=== PATIENT | male | born 1930 | race Caucasian/White ===

== ENCOUNTER 2018-07-09 15:03 | Observation (INO) | payer MEDICARE ==
[2018-07-09 15:26] LABS: VBG BASE EXCESS 8.5 (-2.0-2.0); VBG HCO3- 36.7 meq/L (22-28); VBG HEMOGLOBIN 14.8; VBG POTASSIUM 4.1 (3.5-5.1); VBG pH 7.36 (7.32-7.42)
[2018-07-09 15:30] LABS: BASOPHIL % 0.2 % (0.0-0.4); Basophil (Absolute #) 0.02 (0-0.4); Eosinophil % 0.4 % (0.00-5.0); Eosinophil (Absolute #) 0.04 (0-0.5); Granulocyte Absolute (ANC) 7.26 (1.4-6.9); Granulocytes % 78.6 % (36.0-66.0); Hematocrit 46.1 % (42-50); Hemoglobin 14.8 gm/dl (12.5-18.0); Lymphocyte (Absolute #) 1.07 (1.0-4.6); Lymphocytes % 11.6 % (24.0-44.0); Mean Cell Volume 99.1 fl (78-100); Mean Corpuscular Hemoglobin 31.8 pg (26-32); Mean Corpuscular Hgb Concent. 32.1 g/dl (32-36); Mean Platelet Volume 10.5 fl (6-9.5); Monocyte (Absolute #) 0.85 (0.0-1.3); Monocytes % 9.2 % (0.0-12.0); Platelet Count 186 K/mm3 (150-450); Red Blood Count 4.65 M/mm3 (4.1-5.6); Red Cell Distribution Width 14.1 % (11.5-14.0); White Blood Count 9.2 K/mm3 (4.0-10.5)
--- NOTE | 2018-07-09 15:31 | ERPHSYRPT ---
- History of Present Illness Time Seen by Provider: 07/09/18 15:26 Source: patient Exam Limitations: no limitations Physician History: 87-year-old white female with history of ALS, COPD, glaucoma. Brought by his family with complaints of shortness of breath. The patient states he feels like he needs to cough but he really can't. Family states that patient is supposed to be on BiPAP and that this and recommended his neurologist however this has not been able to be set up patient. Patient has not had a fever. Past medical history includes ALS, COPD, glaucoma past surgical history is negative. . Timing/Duration: today Severity: moderate Modifying Factors: Improves With: nothing Associated Symptoms: headaches, weakness (patient with ALS), No nausea, No abdominal pain, No shortness of breath, No heartburn, No diaphoresis, No cough, No chills, No chest pain, No fever, No loss of appetite, No malaise, No rash, No syncope, No seizure Allergies/Adverse Reactions: naproxen Allergy (Intermediate, Verified 07/09/18 15:30) mushrooms Allergy (Uncoded 07/09/18 16:22) Home Medications: Apixaban [Eliquis 5 mg Tablet] 5 mg PO DAILY 07/09/18 [History] Divalproex Sodium [Depakote] 500 mg PO BID 07/09/18 [History] Dorzolamide HCl/Timolol Maleat [Dorzolamide-Timolol Eye Drops] 10 ml OP DAILY [History] Finasteride 5 mg [Proscar 5 MG] 5 mg PO DAILY 07/09/18 [History] Silodosin [Rapaflo] 8 mg PO DAILY 07/09/18 [History] Travorpost Ophth [Travatan 0.004% Opth Debbie] 0 ml OP DAILY 07/09/18 [ History] Hx Tetanus, Diphtheria Vaccination/Date Given: No Hx Influenza Vaccination/Date Given: Yes Hx Pneumococcal Vaccination/Date Given: No - Review of Systems Constitutional: No Fever, No Chills Eyes: No Symptoms Ears, Nose, & Throat: No Symptoms Respiratory: Dyspnea Cardiac: No Chest Pain, No Edema, No Syncope Abdominal/Gastrointestinal: No Abdominal Pain, No Nausea, No Vomiting, No Diarrhea Genitourinary Symptoms: No Dysuria Musculoskeletal: No Back Pain, No Neck Pain Skin: No Rash Neurological: Headache, Other (Patient with ALS) Psychological: No Symptoms Endocrine: No Symptoms All Other Systems: Reviewed and Negative - Past Medical History Pertinent Past Medical History: Yes Neurological History: No Pertinent History ENT History: No Pertinent History Cardiac History: No Pertinent History Respiratory History: Emphysema, Other Endocrine Medical History: No Pertinent History Musculoskeletal History: Degenerative Disk Disease, Osteoarthritis, Osteoporosis GI Medical History: No Pertinent History History: No Pertinent History Psycho-Social History: No Pertinent History Male Reproductive Disorders: No Pertinent History Other Medical History: SOB, - Past Surgical History Past Surgical History: No Other Surgical History: TONSILLECTOMY - Social History Smoking Status: Never smoker Exposure to second hand smoke: No Alcohol Use: None Drug Use: none Patient Lives Alone: No Significant Family History: no pertinent family hx - Nursing Vital Signs Nursing Vital Signs: Initial Vital Signs Temperature 98.5 F 07/09/18 15:10 Pulse Rate 98 H 07/09/18 15:10 Respiratory Rate 24 07/09/18 15:10 Blood Pressure 158/95 07/09/18 15:10 O2 Sat by Pulse Oximetry 91 L 07/09/18 15:10 Pain Scale Pain Intensity 7 - Physical Exam General Appearance: no apparent distress, alert Eye Exam: PERRL/EOMI, eyes nml inspection Ears, Nose, Throat Exam: normal ENT inspection, TMs normal, pharynx normal, moist mucous membranes Neck Exam: normal inspection, non-tender, supple, full range of motion Respiratory Exam: diminished breath sounds Cardiovascular Exam: regular rate/rhythm, normal heart sounds, normal peripheral pulses Gastrointestinal/Abdomen Exam: soft, normal bowel sounds, No tenderness, No mass Back Exam: normal inspection, normal range of motion, No CVA tenderness, No vertebral tenderness Extremity Exam: normal inspection Neurologic Exam: alert, oriented x 3, cooperative, emr specialist II-XII nml as tested, normal mood/affect, nml cerebellar function, nml station & gait, sensation nml, No motor deficits Skin Exam: normal color, warm, dry, No rash - Course Nursing assessment & vital signs reviewed: Yes EKG Interpreted by Me: RATE (85 bp-m), Right Bundle Branch Block, Other (EKG: Sinus arrhythmia, 85 beats per minute, left axis deviation, complete right bundle branch block, left anterior fascicular block) - Radiology Exams Chest X-ray Interpretation: Interpreted by me (no acute disease process) Ordered Tests: Active Orders 24 hr Category Date Time Status Rfid Engineer STAT Care 07/09/18 15:13 Active EKG-ER Only STAT Care 07/09/18 15:12 Active IV Insertion STAT Care 07/09/18 15:12 Active Oxygen-ED Only NASAL CANNULA 2 lpm Care 07/09/18 15:12 Active CHEST 1 VIEW (PORTABLE) Stat Exams 07/09/18 15:13 Taken CBC W DIFF Stat Lab 07/09/18 15:25 Completed CMP Stat Lab 07/09/18 15:25 Completed NT PRO BNP Stat Lab 07/09/18 15:25 Completed TROPONIN Q3H Lab 07/09/18 15:25 Completed TROPONIN Q3H Lab 07/09/18 18:15 Ordered TROPONIN Q3H Lab 07/09/18 21:15 Ordered TROPONIN Q3H Lab 07/10/18 00:15 Ordered TROPONIN Q3H Lab 07/10/18 03:15 Ordered VENOUS BLOOD GAS Stat Lab 07/09/18 15:12 Completed BiPap/CPAP STAT RT 07/09/18 16:30 Active Lab/Rad Data: Laboratory Result Diagrams 07/09/18 15:25 07/09/18 15:25 Laboratory Results 07/09/18 07/09/18 07/09/18 Range/Units 15:25 15:25 15:25 WBC 9.2 (4.0-10.5) K/mm3 RBC 4.65 (4.1-5.6) M/mm3 Hgb 14.8 (12.5-18.0) gm/dl Hct 46.1 (42-50) % MCV 99.1 (78-100) fl MCH 31.8 (26-32) pg MCHC 32.1 (32-36) g/dl RDW 14.1 H (11.5-14.0) % Plt Count 186 (150-450) K/mm3 MPV 10.5 H (6-9.5) fl Gran % 78.6 H (36.0-66.0) % Eos # (Auto) 0.04 (0-0.5) Absolute Lymphs (auto) 1.07 (1.0-4.6) Absolute Monos (auto) 0.85 (0.0-1.3) Lymphocytes % 11.6 L (24.0-44.0) % Monocytes % 9.2 (0.0-12.0) % Eosinophils % 0.4 (0.00-5.0) % Basophils % 0.2 (0.0-0.4) % Absolute Granulocytes 7.26 H (1.4-6.9) Basophils # 0.02 (0-0.4) pO2/FiO2 Ratio % VBG pH (7.32-7.42) VBG pCO2 at Pat Temp (42-55) mm/Hg VBG pO2 at Pat Temp (25-40) mm/Hg VBG HCO3 (22-28) meq/L VBG O2 Sat (Leighann) (95-100) VBG Base Excess (-2.0-2.0) VBG Hemoglobin VBG Carboxyhemoglobin (0.0-6.9) % T HGB POC Potassium (3.5-5.1) Sodium 143 (137-145) mmol/L Potassium 4.2 (3.5-5.1) mmol/L Chloride 98 (98-107) mmol/L Carbon Dioxide 35 H (22-30) mmol/L Anion Gap 14.7 (5-15) MEQ/L BUN 30 H (9-20) mg/dL Creatinine 0.74 (0.66-1.25) mg/dL Estimated GFR > 60.0 ML/MIN Glucose 99 (74-106) mg/dL Calcium 9.4 (8.4-10.2) mg/dL Total Bilirubin 0.70 (0.2-1.3) mg/dL AST 22 (17-59) U/L ALT 19 (0-50) U/L Alkaline Phosphatase 54 (38-126) U/L Troponin I 0.018 (0.000-0.034) ng/mL NT-Pro-B Natriuret Pep 141 (0-1800) pg/mL Serum Total Protein 6.9 (6.3-8.2) g/dL Albumin 3.9 (3.5-5.0) g/dL 07/09/18 Range/Units 15:12 WBC (4.0-10.5) K/mm3 RBC (4.1-5.6) M/mm3 Hgb (12.5-18.0) gm/dl Hct (42-50) % MCV (78-100) fl MCH (26-32) pg MCHC (32-36) g/dl RDW (11.5-14.0) % Plt Count (150-450) K/mm3 MPV (6-9.5) fl Gran % (36.0-66.0) % Eos # (Auto) (0-0.5) Absolute Lymphs (auto) (1.0-4.6) Absolute Monos (auto) (0.0-1.3) Lymphocytes % (24.0-44.0) % Monocytes % (0.0-12.0) % Eosinophils % (0.00-5.0) % Basophils % (0.0-0.4) % Absolute Granulocytes (1.4-6.9) Basophils # (0-0.4) pO2/FiO2 Ratio 28.0 % VBG pH 7.36 (7.32-7.42) VBG pCO2 at Pat Temp 65 H* (42-55) mm/Hg VBG pO2 at Pat Temp 45 H (25-40) mm/Hg VBG HCO3 36.7 H* (22-28) meq/L VBG O2 Sat (Leighann) 85.0 L (95-100) VBG Base Excess 8.5 H (-2.0-2.0) VBG Hemoglobin 14.8 VBG Carboxyhemoglobin 2.0 (0.0-6.9) % T HGB POC Potassium 4.1 (3.5-5.1) Sodium (137-145) mmol/L Potassium (3.5-5.1) mmol/L Chloride (98-107) mmol/L Carbon Dioxide (22-30) mmol/L Anion Gap (5-15) MEQ/L BUN (9-20) mg/dL Creatinine (0.66-1.25) mg/dL Estimated GFR ML/MIN Glucose (74-106) mg/dL Calcium (8.4-10.2) mg/dL Total Bilirubin (0.2-1.3) mg/dL AST (17-59) U/L ALT (0-50) U/L Alkaline Phosphatase (38-126) U/L Troponin I (0.000-0.034) ng/mL NT-Pro-B Natriuret Pep (0-1800) pg/mL Serum Total Protein (6.3-8.2) g/dL Albumin (3.5-5.0) g/dL - Progress Progress: improved Progress Note: 07/09/18 16:57 This is a 87 year old white male with a history of ALS who arrives with complaint of shortness of breath for several days. The patient's daughter states that the patient's family doctor and neurologist had wanted to get the patient on Bipap but family state they have not been able to get this done , they further state that the patient has been tried to be placed on inhalers but the patient had tacchycardia with this. on physical exam the patient had diminished breath sounds but no wheezing, heart rate was regular cxr did not show pneumothorax or infiltrates chemistry and troponin and cbc were essentially normal . venous gasses showed a ph of 7.36 and a pco2 of 65 patient is placed on Bipap by respiratory and patient feels improved, there are no wheezes auscultated. I discussed the patient's case with Dr Mejia , (ribbon inker for Dr Rose) will place patieent on observation, telemetry continue bipap. Patient will, most likely need to be set up for bipap at home. - Departure Time of Disposition: 17:06 Departure Disposition: Observation Clinical Impression: SOB (shortness of breath), Hypercapnemia, ALS (amyotrophic lateral sclerosis) Condition: Fair Critical Care Time: No Referrals: CATALINO ROSE MD [Primary Care Provider] -
[2018-07-09 15:54] LABS: ALBUMIN 3.9 g/dL (3.5-5.0); ALKALINE PHOSPHATASE 54 U/L (38-126); ANION GAP 14.7 MEQ/L (5-15); BLOOD UREA NITROGEN 30 mg/dL (9-20); CHLORIDE 98 mmol/L (98-107); Calcium 9.4 mg/dL (8.4-10.2); Carbon Dioxide 35 mmol/L (22-30); Creatinine 1 0.74 mg/dL (0.66-1.25); Glucose 99 mg/dL (74-106); NT PRO BNP 141 pg/mL (0-1800); Potassium 4.2 mmol/L (3.5-5.1); SGOT/AST 22 U/L (17-59); SGPT/ALT 19 U/L (0-50); SODIUM 143 mmol/L (137-145); Total Protein 6.9 g/dL (6.3-8.2)
[2018-07-09] MEDS: Sodium Chloride 0.9% 1000 ML 1,000 ML IV SCH (17:40)
[2018-07-09] MEDS ORDERED: ELIQUIS 2.5 MG TABLET ONE (20:31)
[2018-07-09] MEDS: Proscar 5 MG PO SCH (21:29)
[2018-07-09] MEDS ORDERED: Travatan 0.004% Opth Sol OP SCH (22:00)
[2018-07-09] MEDS ORDERED: ELIQUIS 5 MG TABLET PO SCH (22:00)
--- NOTE | 2018-07-09 22:37 | XRAY ---
Indication: Short of breath. Comparison: None Portable chest demonstrates minimal left base fibrosis/scarring. Remaining heart and lungs normal. Bony thorax intact with mild osteopenia and degenerative changes.
[2018-07-10 06:08] LABS: BASOPHIL % 0.4 % (0.0-0.4); Basophil (Absolute #) 0.03 (0-0.4); Eosinophil % 0.9 % (0.00-5.0); Eosinophil (Absolute #) 0.07 (0-0.5); Granulocyte Absolute (ANC) 5.31 (1.4-6.9); Granulocytes % 66.9 % (36.0-66.0); Hematocrit 43.6 % (42-50); Hemoglobin 13.6 gm/dl (12.5-18.0); Lymphocyte (Absolute #) 1.48 (1.0-4.6); Lymphocytes % 18.6 % (24.0-44.0); Mean Cell Volume 100.7 fl (78-100); Mean Corpuscular Hemoglobin 31.4 pg (26-32); Mean Corpuscular Hgb Concent. 31.2 g/dl (32-36); Mean Platelet Volume 10.8 fl (6-9.5); Monocyte (Absolute #) 1.05 (0.0-1.3); Monocytes % 13.2 % (0.0-12.0); Platelet Count 155 K/mm3 (150-450); Red Blood Count 4.33 M/mm3 (4.1-5.6); Red Cell Distribution Width 14.1 % (11.5-14.0); White Blood Count 7.9 K/mm3 (4.0-10.5)
[2018-07-10 06:20] LABS: ALBUMIN 3.3 g/dL (3.5-5.0); ALKALINE PHOSPHATASE 46 U/L (38-126); ANION GAP 8.7 MEQ/L (5-15); BLOOD UREA NITROGEN 25 mg/dL (9-20); CHLORIDE 100 mmol/L (98-107); Calcium 8.6 mg/dL (8.4-10.2); Carbon Dioxide 38 mmol/L (22-30); Creatinine 1 0.69 mg/dL (0.66-1.25); Glucose 91 mg/dL (74-106); Potassium 3.8 mmol/L (3.5-5.1); SGOT/AST 21 U/L (17-59); SGPT/ALT 15 U/L (0-50); SODIUM 143 mmol/L (137-145)
--- NOTE | 2018-07-10 08:30 | PCM.HP ---
History of Present Illness - Chief Complaint Chief Complaint: SOB, hypercapnia, ALS History of Present Illness: is a 87 year old male who was recently diagnosed with advanced ALS by Dr Adamson, he has been increasingly short of breath and unable to get a bipap in a timely fashion due to insurance regulation so he presented to the ER last night short of breath. He is feeling much better since admission and using bipap and placed on oxygen while eating this morning. He has had significant weight loss over the last few months. - Review of Systems Constitutional: No Fever, No Chills Respiratory: No Cough, No Short Of Breath Cardiac: No Chest Pain, No Edema, No Syncope Abdominal/Gastrointestinal: No Abdominal Pain, No Nausea, No Vomiting, No Diarrhea Skin: No Rash All Other Systems: Reviewed and Negative Medications & Allergies Home Medications: Home Medication List Apixaban [Eliquis 5 mg Tablet] 5 mg PO BID 07/09/18 [History Confirmed 11/14] Divalproex Sodium [Depakote] 500 mg PO BID 07/09/18 [History Confirmed 07/09/18] Dorzolamide HCl/Timolol Maleat [Dorzolamide-Timolol Eye Drops] 1 drop OP BID 11/14 [History Confirmed 07/09/18] Finasteride 5 mg [Proscar 5 MG] 5 mg PO DAILY 07/09/18 [History Confirmed 07/09/18] Silodosin [Rapaflo] 8 mg PO DAILY 07/09/18 [History Confirmed 07/09/18] Travorpost Ophth [Travatan 0.004% Opth Debbie] 1 drop OP HS 07/09/18 [ History Confirmed 07/09/18] Allergies/Adverse Reactions: Allergies Allergy/AdvReac Type Severity Reaction Status Date / Time naproxen Allergy Intermediate Verified 07/09/18 15:30 mushrooms Allergy Uncoded 07/09/18 16:22 - Past Medical History Past Medical History: Yes Neurological History: No Pertinent History ENT History: No Pertinent History Cardiac History: No Pertinent History Respiratory History: Emphysema, Other Endocrine Medical History: No Pertinent History Musculoskelatal History: Degenerative Disk Disease, Osteoarthritis GI Medical History: No Pertinent History History: No Pertinent History, Other Pyscho-Social History: No Pertinent History Male Reproductive Disorders: No Pertinent History Comment: Shortness of Breath, ALS, Enlarged Prostate - Past Surgical History Past Surgical History: No Other Surgical History: TONSILLECTOMY - Social History Smoking Status: Never smoker Exposure to second hand smoke: No Alcohol: None Drug Use: none Significant Family History: no pertinent family hx - Physical Exam Vital Signs: Vital Signs - 24 hr Temp Pulse Resp BP Pulse Ox 07/10/18 07:12 97.6 F 70 18 127/59 94 L 07/10/18 06:43 94 L 07/10/18 06:00 24 07/10/18 04:00 96.4 F 81 24 143/64 97 07/10/18 02:00 20 07/10/18 00:00 97.9 F 82 24 138/65 97 07/09/18 20:00 98.5 F 89 126/77 07/09/18 18:00 24 07/09/18 17:51 94 L 07/09/18 17:46 89 24 100 07/09/18 17:30 100 07/09/18 17:00 80 20 126/77 99 07/09/18 16:15 90 16 144/77 97 07/09/18 15:10 98.5 F 98 H 24 158/95 95 Oxygen-Last 24 hours O2 Percentage 2 Liters = 28% O2 Percentage 2 Liters = 28% O2 Percentage 2 Liters = 28% O2 Percentage 2 Liters = 28% O2 Percentage 2 Liters = 28% O2 Percentage 2 Liters = 28% O2 Percentage 2 Liters = 28% Oxygen Flowrate (L/min)-RT 2 General Appearance: no apparent distress, alert, thin Eye Exam: PERRL/EOMI, eyes nml inspection Respiratory Exam: normal breath sounds, lungs clear, No respiratory distress Cardiovascular Exam: regular rate/rhythm, normal heart sounds, normal peripheral pulses Gastrointestinal/Abdomen Exam: soft, normal bowel sounds, No tenderness, No mass Extremity Exam: normal inspection, normal range of motion, pelvis stable Skin Exam: normal color, warm, dry, No rash Results - Labs Lab/Micro Results: Lab Results-Last 24 Hours 07/09/18 07/09/18 07/09/18 Range/Units 15:12 15:25 15:25 WBC 9.2 (4.0-10.5) K/mm3 RBC 4.65 (4.1-5.6) M/mm3 Hgb 14.8 (12.5-18.0) gm/dl Hct 46.1 (42-50) % MCV 99.1 (78-100) fl MCH 31.8 (26-32) pg MCHC 32.1 (32-36) g/dl RDW 14.1 H (11.5-14.0) % Plt Count 186 (150-450) K/mm3 MPV 10.5 H (6-9.5) fl Gran % 78.6 H (36.0-66.0) % Eos # (Auto) 0.04 (0-0.5) Absolute Lymphs (auto) 1.07 (1.0-4.6) Absolute Monos (auto) 0.85 (0.0-1.3) Lymphocytes % 11.6 L (24.0-44.0) % Monocytes % 9.2 (0.0-12.0) % Eosinophils % 0.4 (0.00-5.0) % Basophils % 0.2 (0.0-0.4) % Absolute Granulocytes 7.26 H (1.4-6.9) Basophils # 0.02 (0-0.4) pO2/FiO2 Ratio 28.0 % VBG pH 7.36 (7.32-7.42) VBG pCO2 at Pat Temp 65 H* (42-55) mm/Hg VBG pO2 at Pat Temp 45 H (25-40) mm/Hg VBG HCO3 36.7 H* (22-28) meq/L VBG O2 Sat (Leighann) 85.0 L (95-100) VBG Base Excess 8.5 H (-2.0-2.0) VBG Hemoglobin 14.8 VBG Carboxyhemoglobin 2.0 (0.0-6.9) % T HGB POC Potassium 4.1 (3.5-5.1) Sodium 143 (137-145) mmol/L Potassium 4.2 (3.5-5.1) mmol/L Chloride 98 (98-107) mmol/L Carbon Dioxide 35 H (22-30) mmol/L Anion Gap 14.7 (5-15) MEQ/L BUN 30 H (9-20) mg/dL Creatinine 0.74 (0.66-1.25) mg/dL Estimated GFR > 60.0 ML/MIN Glucose 99 (74-106) mg/dL Calcium 9.4 (8.4-10.2) mg/dL Total Bilirubin 0.70 (0.2-1.3) mg/dL AST 22 (17-59) U/L ALT 19 (0-50) U/L Alkaline Phosphatase 54 (38-126) U/L Troponin I (0.000-0.034) ng/mL NT-Pro-B Natriuret Pep 141 (0-1800) pg/mL Serum Total Protein 6.9 (6.3-8.2) g/dL Albumin 3.9 (3.5-5.0) g/dL 07/09/18 07/09/18 07/10/18 Range/Units 15:25 18:41 05:42 WBC 7.9 (4.0-10.5) K/mm3 RBC 4.33 (4.1-5.6) M/mm3 Hgb 13.6 (12.5-18.0) gm/dl Hct 43.6 (42-50) % MCV 100.7 H (78-100) fl MCH 31.4 (26-32) pg MCHC 31.2 L (32-36) g/dl RDW 14.1 H (11.5-14.0) % Plt Count 155 (150-450) K/mm3 MPV 10.8 H (6-9.5) fl Gran % 66.9 H (36.0-66.0) % Eos # (Auto) 0.07 (0-0.5) Absolute Lymphs (auto) 1.48 (1.0-4.6) Absolute Monos (auto) 1.05 (0.0-1.3) Lymphocytes % 18.6 L (24.0-44.0) % Monocytes % 13.2 H (0.0-12.0) % Eosinophils % 0.9 (0.00-5.0) % Basophils % 0.4 (0.0-0.4) % Absolute Granulocytes 5.31 (1.4-6.9) Basophils # 0.03 (0-0.4) pO2/FiO2 Ratio % VBG pH (7.32-7.42) VBG pCO2 at Pat Temp (42-55) mm/Hg VBG pO2 at Pat Temp (25-40) mm/Hg VBG HCO3 (22-28) meq/L VBG O2 Sat (Leighann) (95-100) VBG Base Excess (-2.0-2.0) VBG Hemoglobin VBG Carboxyhemoglobin (0.0-6.9) % T HGB POC Potassium (3.5-5.1) Sodium (137-145) mmol/L Potassium (3.5-5.1) mmol/L Chloride (98-107) mmol/L Carbon Dioxide (22-30) mmol/L Anion Gap (5-15) MEQ/L BUN (9-20) mg/dL Creatinine (0.66-1.25) mg/dL Estimated GFR ML/MIN Glucose (74-106) mg/dL Calcium (8.4-10.2) mg/dL Total Bilirubin (0.2-1.3) mg/dL AST (17-59) U/L ALT (0-50) U/L Alkaline Phosphatase (38-126) U/L Troponin I 0.018 0.019 (0.000-0.034) ng/mL NT-Pro-B Natriuret Pep (0-1800) pg/mL Serum Total Protein (6.3-8.2) g/dL Albumin (3.5-5.0) g/dL 07/10/18 Range/Units 05:42 WBC (4.0-10.5) K/mm3 RBC (4.1-5.6) M/mm3 Hgb (12.5-18.0) gm/dl Hct (42-50) % MCV (78-100) fl MCH (26-32) pg MCHC (32-36) g/dl RDW (11.5-14.0) % Plt Count (150-450) K/mm3 MPV (6-9.5) fl Gran % (36.0-66.0) % Eos # (Auto) (0-0.5) Absolute Lymphs (auto) (1.0-4.6) Absolute Monos (auto) (0.0-1.3) Lymphocytes % (24.0-44.0) % Monocytes % (0.0-12.0) % Eosinophils % (0.00-5.0) % Basophils % (0.0-0.4) % Absolute Granulocytes (1.4-6.9) Basophils # (0-0.4) pO2/FiO2 Ratio % VBG pH (7.32-7.42) VBG pCO2 at Pat Temp (42-55) mm/Hg VBG pO2 at Pat Temp (25-40) mm/Hg VBG HCO3 (22-28) meq/L VBG O2 Sat (Leighann) (95-100) VBG Base Excess (-2.0-2.0) VBG Hemoglobin VBG Carboxyhemoglobin (0.0-6.9) % T HGB POC Potassium (3.5-5.1) Sodium 143 (137-145) mmol/L Potassium 3.8 (3.5-5.1) mmol/L Chloride 100 (98-107) mmol/L Carbon Dioxide 38 H (22-30) mmol/L Anion Gap 8.7 (5-15) MEQ/L BUN 25 H (9-20) mg/dL Creatinine 0.69 (0.66-1.25) mg/dL Estimated GFR > 60.0 ML/MIN Glucose 91 (74-106) mg/dL Calcium 8.6 (8.4-10.2) mg/dL Total Bilirubin 0.50 (0.2-1.3) mg/dL AST 21 (17-59) U/L ALT 15 (0-50) U/L Alkaline Phosphatase 46 (38-126) U/L Troponin I (0.000-0.034) ng/mL NT-Pro-B Natriuret Pep (0-1800) pg/mL Serum Total Protein 6.0 L (6.3-8.2) g/dL Albumin 3.3 L (3.5-5.0) g/dL - Radiology Impressions Radiology Exams & Impressions: Radiology Procedures Category Date Time Status CHEST 1 VIEW (PORTABLE) Stat Exams 07/09/18 15:13 Completed - Other Procedures and Tests Respiratory Therapy 07/09/18 16:30 BiPap/CPAP ROUTINE 07/09/18 17:51 Respiratory Therapy Assessment DAILY 07/09/18 18:15 Oxygen NASAL CANNULA 2 lpm Assessment/Plan (1) ALS (amyotrophic lateral sclerosis) Current Visit: Yes Status: Acute Assessment & Plan: needs bipap and hospice care, consulting with [facility] today and will discharge to home. patient is a DNR and is not interested in a gastrostomy tube or mechanical ventilation per our conversation. at this time I feel comfort measures are most appropriate, the patient and his daughter agree. Code(s): G12.21 - AMYOTROPHIC LATERAL SCLEROSIS (2) Hypercapnemia Current Visit: Yes Status: Acute Code(s): R06.89 - OTHER ABNORMALITIES OF BREATHING (3) SOB (shortness of breath) Current Visit: Yes Status: Acute Code(s): R06.02 - SHORTNESS OF BREATH
[2018-07-10] MEDS ORDERED: MEDICATION INTERVENTION PO SCH (08:45)
[2018-07-10] MEDS: Proscar 5 MG PO SCH (09:22)
[2018-07-10] MEDS: ELIQUIS 2.5 MG TABLET PO SCH ×2 (09:22→21:34)
[2018-07-10] MEDS: COSOPT OPHTHALMIC 10 ML OP SCH ×2 (09:33→21:45)
[2018-07-10] MEDS: Sodium Chloride 0.9% 1000 ML 1,000 ML IV SCH (09:36)
[2018-07-10] MEDS ORDERED: SILODOSIN 8 MG PO SCH (10:00)
[2018-07-10] MEDS ORDERED: Travatan 0.004% Opth Sol OP SCH (22:00)
[2018-07-10] MEDS ORDERED: PATIENT OWN MEDICATION PO SCH (22:00)
[2018-07-11] MEDS: Sodium Chloride 0.9% 1000 ML 1,000 ML IV SCH (02:19)
--- NOTE | 2018-07-11 09:01 | PCM.DS ---
Discharge Summary Date of Admission: 07/09/18 17:26 Admitting Physician: CATALINO ROSE Primary Care Provider: CATALINO ROSE Allergies Allergies naproxen Allergy (Intermediate, Verified 07/09/18 15:30) mushrooms Allergy (Uncoded 07/09/18 16:22) Hospital Summary - Hospital Course Hospital Course: Pt of Dr. Rose recently dx with ALS was supposed to get BIpap at home but due to insurance issues was unable to get it. Came in hypercapneic, SOB - placed on bipap and now he states his breathing is much better. He is on NC currently , eating breakfast. He is to go home on [facility]. - Vitals & Intake/Output Vital Signs: Vital Signs Temperature 97.5 F 07/11/18 07:50 Pulse Rate 66 07/11/18 07:50 Respiratory Rate 18 07/11/18 07:50 Blood Pressure 115/57 07/11/18 07:50 O2 Sat by Pulse Oximetry 91 L 07/11/18 07:50 Oxygen-Last Documented O2 Percentage 2 Liters = 28% Intake & Output: Intake & Output 07/08/18 07/09/18 07/10/18 07/11/18 11:59 11:59 11:59 11:59 Intake Total 480 660 Output Total 225 100 Balance 255 560 Weight 49.895 kg - Lab Result Diagrams: 07/10/18 05:42 07/10/18 05:42 - Radiology Exams Ordered Rad Exams-Entire Visit: Radiology Procedures Category Date Time Status CHEST 1 VIEW (PORTABLE) Stat Exams 07/09/18 15:13 Completed - Procedures and Test Procedures and Tests throughout Hospitalization: Therapy Orders & Screens 07/09/18 16:30 BiPap/CPAP ROUTINE Comment: 07/09/18 17:30 Respiratory Therapy Consult ROUTINE Comment: Reason For Exam: 07/09/18 17:51 Respiratory Therapy Assessment DAILY Comment: 07/09/18 18:15 Oxygen NASAL CANNULA 2 lpm Comment: pt wears 2lpm when off bipap 07/10/18 05:13 OT Screen per Nursing Assess Comment: Protocol Order Physician Instructions: Greater than 3 points order OT Admission Screening Reason For Exam: Triggered on Admission Diagnosis: SOB, hypercapnia, ALS Open Wound/Cellutlitis/Pressure Ulcers: No Acute Fx/ORIF/Change in wt bearing status: No Severe MUSCULOSKELETAL pain: No ADL Dysfunction: Yes Acute CVA w/Hemiparesis/Hemiplegia: No Decreased Functional Mobility/Strength: Yes Sprain/Strain: No Acute Post-op Mobility Dysfunction: No Total Points: 4 PT Screen per Nursing Assess Comment: Protocol Order Physician Instructions: Greater than 3 points order PT Admission Screenin Reason For Exam: Triggered on Admission Diagnosis: SOB, hypercapnia, ALS Open Wound/Cellutlitis/Pressure Ulcers: No Acute Fx/ORIF/Change in wt bearing status: No Severe MUSCULOSKELETAL pain: No ADL Dysfunction: Yes Acute CVA w/Hemiparesis/Hemiplegia: No Decreased Functional Mobility/Strength: Yes Sprain/Strain: No Acute Post-op Mobility Dysfunction: No Total Points: 4 RT Screen per Nursing Assess ONCE Comment: Protocol Order Physician Instructions: Greater than 3 points order RT Admission Screen Reason For Exam: Triggered on Admission Diagnosis: SOB, hypercapnia, ALS Diagnosis: SOB, hypercapnia, ALS Pneumonia: No Home O2: Yes Asthma: No CHF: No Home CPAP/BIPAP: No Home Nebs/MDI: Yes Total Points: 10 Discharge Exam General Appearance: no apparent distress, alert Neurologic Exam: oriented x 3, cooperative, other (has some slurred speech) Skin Exam: normal color, warm, dry, No rash Ears, Nose, Throat Exam: moist mucous membranes Respiratory Exam: diminished breath sounds, No crackles/rales, No rhonchi, No wheezing Cardiovascular Exam: regular rate/rhythm, normal heart sounds, No murmur Gastrointestinal/Abdomen Exam: soft, normal bowel sounds, No distention Back Exam: normal inspection, No rash Final Diagnosis/Problem List - Final Discharge Diagnosis/Problem (1) ALS (amyotrophic lateral sclerosis) Current Visit: Yes Status: Chronic Onset Date: ~07/10/18 Assessment & Plan: Home on hospice. F/u with neurology as scheduled. (2) Hypercapnemia Current Visit: Yes Status: Acute Onset Date: ~07/10/18 Assessment & Plan: Better on bipap. Pt is feeling comfortable. Bipap has been arranged for home use. (3) Glaucoma Current Visit: Yes Status: Chronic (4) History of DVT (deep vein thrombosis) Current Visit: Yes Status: Chronic Assessment & Plan: on Eliquis (5) SOB (shortness of breath) Current Visit: Yes Status: Chronic Onset Date: ~07/10/18 Assessment & Plan: The acute exacerbation has resolved. (6) BPH (benign prostatic hyperplasia) Current Visit: Yes Status: Chronic Assessment & Plan: on proscar (7) DNR (do not resuscitate) Current Visit: Yes Status: Acute Assessment & Plan: Dr. Rose discussed with pt and daughter yesterday. - Discharge Disposition: Hospice @ [facility] Condition: Stable Prescriptions: Continue Finasteride 5 mg [Proscar 5 MG] 5 mg PO DAILY Travorpost Ophth [Travatan 0.004% Opth Debbie] 1 drop OP HS Silodosin [Rapaflo] 8 mg PO DAILY Dorzolamide HCl/Timolol Maleat [Dorzolamide-Timolol Eye Drops] 1 drop OP BID Divalproex Sodium [Depakote] 500 mg PO BID Apixaban [Eliquis 5 mg Tablet] 5 mg PO BID Follow up with: CATALINO ROSE MD [Primary Care Provider] - 1 Week
[2018-07-11] MEDS: COSOPT OPHTHALMIC 10 ML OP SCH (09:30)
[2018-07-11] MEDS: Proscar 5 MG PO SCH (09:30)
[2018-07-11] MEDS: ELIQUIS 2.5 MG TABLET PO SCH (09:30)
[2018-07-11 11:46] VITALS: BP 117/57; PULSE 57; O2SAT 92
== END 2018-07-11 12:32 | disposition hospice, home (50) ==
LOC: ED 15:03 → MED SURG 17:26
PROVIDERS: ADMIT Family Medicine; ATTEND Family Medicine
DX: H40.9 Unspecified glaucoma (principal); Z86.718 Personal history of other venous thrombosis and embolism; R06.02 Shortness of breath; N40.0 Benign prostatic hyperplasia without lower urinary tract symptoms; M19.90 Unspecified osteoarthritis, unspecified site; Z79.899 Other long term (current) drug therapy
CPT/HCPCS: 36000; 36415; 71045; 80053; 82805; 83880; 84484; 85025; 93005; 93041; 93268; 94002; 94003; 94760; 94762; 99285; A9270-GY; G0378